=== PATIENT | male | born 1975 | race Caucasian/White ===

== ENCOUNTER 2024-01-02 10:13 | Day surgery (SDC) | payer BC ==
[~2024-01-02] VITALS: Ht 185.4 cm; Wt 90.4 kg
[~2024-01-02 10:13] MED LIST: FLUTISP; MIDAZOLAM INJ 2MG/2ML VIAL As Ordered ONE; PHENYLEPHRINE 10% OPHTH SOL 5ML OD PRN; fentaNYL 100 MCG/2 ML INJECTION As Ordered ONE
[2024-01-02] MEDS: OFLOXACIN 0.3 % (OCUFLOX) OPTH SOL 5ML OD ONE (11:22)
[2024-01-02] MEDS: CYCLOPENTOLATE 1% OPHTH SOLN 2ML BTL OD SCH (11:23)
[2024-01-02] MEDS: TROPICAMIDE 1% OPHTH SOLN 15ML OD SCH (11:23)
[2024-01-02] MEDS: LIDOCAINE 3.5 % 1ML OPHTH TOPICAL GEL OU ONE (11:23)
[2024-01-02] MEDS: PHENYLEPHRINE 2.5% OPHTH SOL 2ML OD SCH (11:23)
[2024-01-02] MEDS: LIDOCAINE 1% SDV 5ML VIAL As Ordered ONE (11:39)
[2024-01-02] MEDS: BSS IRRIG/VANCO(10MG)/TOBRA(5MG)/EPINEPH(1:1000-0.5CC)500ML BAG-ORONLY As Ordered ONE (11:39)
[2024-01-02] MEDS: CEFUROXIME 1MG/0.1ML INTRACAMERAL INJ As Ordered ONE (11:40)
[2024-01-02 11:53] VITALS: BP 113/72; TEMP 97.4; O2SAT 97
== END 2024-01-02 12:17 | disposition home or self-care (01) ==
LOC: M SDC 10:13
PROVIDERS: ATTEND Ophthalmology
DX: H25.11 Age-related nuclear cataract, right eye (principal); M54.9 Dorsalgia, unspecified; Z79.899 Other long term (current) drug therapy; F17.200 Nicotine dependence, unspecified, uncomplicated
CPT/HCPCS: 66984; J0697; J2250; J3010

== ENCOUNTER 2024-01-09 06:16 | Day surgery (SDC) | payer BC ==
[~2024-01-09] VITALS: Ht 185.4 cm; Wt 89.8 kg
[~2024-01-09 06:16] MED LIST changes: -MIDAZOLAM INJ 2MG/2ML VIAL As Ordered ONE; -PHENYLEPHRINE 10% OPHTH SOL 5ML OD PRN; +PHENYLEPHRINE 10% OPHTH SOL 5ML OS PRN; -fentaNYL 100 MCG/2 ML INJECTION As Ordered ONE
[2024-01-09] MEDS: PHENYLEPHRINE 2.5% OPHTH SOL 2ML OS SCH (07:33)
[2024-01-09] MEDS: OFLOXACIN 0.3 % (OCUFLOX) OPTH SOL 5ML OS ONE (07:33)
[2024-01-09] MEDS ORDERED: MIDAZOLAM 5MG/ML 1ML VIAL As Ordered ONE (07:33)
[2024-01-09] MEDS: LIDOCAINE 3.5 % 1ML OPHTH TOPICAL GEL OU ONE (07:33)
[2024-01-09] MEDS: CYCLOPENTOLATE 1% OPHTH SOLN 2ML BTL OS SCH (07:33)
[2024-01-09] MEDS: TROPICAMIDE 1% OPHTH SOLN 15ML OS SCH (07:33)
[2024-01-09] MEDS: CEFUROXIME 1MG/0.1ML INTRACAMERAL INJ As Ordered ONE (08:25)
[2024-01-09] MEDS: BSS IRRIG/VANCO(10MG)/TOBRA(5MG)/EPINEPH(1:1000-0.5CC)500ML BAG-ORONLY As Ordered ONE (08:25)
[2024-01-09] MEDS: LIDOCAINE 1% SDV 5ML VIAL As Ordered ONE (08:25)
[2024-01-09] MEDS ORDERED: MIDAZOLAM INJ 2MG/2ML VIAL As Ordered ONE (08:27)
[2024-01-09 08:39] VITALS: BP 110/73; TEMP 97.4; O2SAT 94
== END 2024-01-09 08:51 | disposition home or self-care (01) ==
LOC: M SDC 06:16 → EDUNIT# 13:30
PROVIDERS: ATTEND Ophthalmology
DX: H25.12 Age-related nuclear cataract, left eye (principal); H57.03 Miosis; M54.50 Low back pain, unspecified; F17.218 Nicotine dependence, cigarettes, with other nicotine-induced disorders; Z79.899 Other long term (current) drug therapy
CPT/HCPCS: 66982; J0697; J2250